=== PATIENT | male | born 1950 | race Caucasian/White ===

== ENCOUNTER 2017-12-23 09:52 | Outpatient (CLI) | payer MEDICARE ==
--- NOTE | 2017-12-23 11:49 | RAD ---
TWO VIEWS CHEST: INDICATIONS: Dyspnea. COMPARISON: None. FINDINGS: The lungs are hyperinflated and relative lucent, indicative of emphysema. There is interstitial opac ification bilaterally. No effusion or discrete pneumothorax. The cardiac silhouette is normal in si ze. There are mild osseous degenerative changes. IMPRESSION: 1. Pulmonary emphysema. 2. Superimposed interstitial opacities are present, which may be on the basis of chronic lung diseas e and/or a component of interspersed pulmonary parenchyma, accentuated by underlying emphysema. POS: [facility]
== END 2017-12-23 09:53 | disposition home or self-care (01) ==
LOC: RAD 09:52
PROVIDERS: ATTEND Internal Medicine
DX: R06.00 Dyspnea, unspecified (principal); J43.9 Emphysema, unspecified; R91.8 Other nonspecific abnormal finding of lung field
CPT/HCPCS: 71046

== ENCOUNTER 2018-06-29 10:28 | Outpatient (CLI) | payer MEDICARE ==
--- NOTE | 2018-06-29 11:58 | RAD ---
TWO VIEWS CHEST: COMPARISON: 12/23/17. HISTORY: Dyspnea. FINDINGS: Normal cardiac silhouette. The pulmonary vessels and hilum are normal. Costophrenic angles are toby r. Lungs are hyperinflated, without consolidation or mass. No pneumothorax or osseous abnormalities . IMPRESSION: Hyperinflation. No acute cardiopulmonary process. POS: [facility]
== END 2018-06-29 10:29 | disposition home or self-care (01) ==
LOC: RAD 10:28
PROVIDERS: ATTEND Internal Medicine
DX: R06.00 Dyspnea, unspecified (principal); R91.8 Other nonspecific abnormal finding of lung field
CPT/HCPCS: 71046

== ENCOUNTER 2018-07-14 09:01 | Outpatient (CLI) | payer MEDICARE ==
[2018-07-14 09:56] LABS: pH, Arterial 7.43 (7.35-7.45)
[2018-07-14 09:57] LABS: Actual Bicarbonate (HCO3a) 23.3 mEq/L (22-28); Base Excess (BEa) 0.6 mEq/L (-2.0 to +3.0); CO2 Tension 36.3 mmHg (35.0-45.0); Carboxyhemoglobin (COHb) 0.5 gm% (0.0-3.0); Hemoglobin (Hb) 14.1 g/dL (14.0-18.0)
[2018-07-14 09:58] LABS: ALV-art Gradient 30.355 (0-20); Analyzer IN Cardio OR; Calcium, Ionized 1.2 mmol/L (1.12-1.30); Potassium - ABG Lab 4.2 mmol/L (3.70-5.30); Puncture Site RR
== END 2018-07-14 09:02 | disposition home or self-care (01) ==
LOC: CP 09:01
PROVIDERS: ATTEND Internal Medicine
DX: J44.9 Chronic obstructive pulmonary disease, unspecified (principal); J96.11 Chronic respiratory failure with hypoxia; R06.00 Dyspnea, unspecified
CPT/HCPCS: 36415; 82805; 84443; 85025

== ENCOUNTER 2019-01-11 10:02 | Outpatient (CLI) | payer MEDICARE ==
--- NOTE | 2019-01-11 11:25 | RAD ---
CHEST TWO VIEWS: HISTORY: Dyspnea. COMPARISON: 06/29/2018 TECHNIQUE: PA and lateral views of the chest are obtained. FINDINGS: Two views of the chest demonstrate emphysematous changes seen in the lung parenchyma. 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 No evidence of effusions, pneumonia, or pneumothorax is seen. IMPRESSION: Changes of chronic obstructive pulmonary disease with air trapping. No evidence of effusions, pneumo dalton, or pneumothorax seen. POS: [facility]
== END 2019-01-11 10:03 | disposition home or self-care (01) ==
LOC: RAD 10:02
PROVIDERS: ATTEND Internal Medicine
DX: R06.00 Dyspnea, unspecified (principal); J98.4 Other disorders of lung
CPT/HCPCS: 71046

== ENCOUNTER 2019-04-13 10:48 | Outpatient (CLI) | payer MEDICARE ==
[2019-04-13] MEDS ORDERED: ISOVUE-370 76%-LOCM 1 ML ONE (11:25)
--- NOTE | 2019-04-13 13:32 | CT ---
CT CHEST WITH IV CONTRAST: Date: 04/13/19 HISTORY: Cough, shortness of breath, COPD. FINDINGS: No mediastinal, left hilar, or axillary mass or lymphadenopathy is seen. There is an 11 mm lymph node in the right hilar region. Vascular calcifications are present without evidence of aneurysmal dilata tion of the thoracic aorta. No pleural or pericardial effusions are seen. There are mild infiltrates in the right upper lobe adjacent to bullous change. In the absence of prev ious exams, it cannot be said with certainty if this is due to acute or chronic changes. No lung mass es are seen. Upper abdominal tomograms are unremarkable. No acute osseous abnormalities are seen. IMPRESSION: Emphysema with mild infiltrates in the left upper lobe. A follow-up exam would be helpful in 3 months . POS: [facility]
== END 2019-04-13 10:49 | disposition home or self-care (01) ==
LOC: BICCT 10:48
PROVIDERS: ATTEND Internal Medicine
DX: R05 Cough (principal); J44.9 Chronic obstructive pulmonary disease, unspecified; J96.11 Chronic respiratory failure with hypoxia; R91.8 Other nonspecific abnormal finding of lung field; J43.9 Emphysema, unspecified
CPT/HCPCS: 36415; 71260; 82565; 82785; 85025; Q9966

== ENCOUNTER 2019-10-03 08:54 | Outpatient (CLI) | payer MEDICARE ==
[2019-10-03 09:24] LABS: Estimated GFR-MDRD - POC Greater than 90
--- NOTE | 2019-10-03 10:03 | CT ---
CT CHEST WITH IV CONTRAST: DATE: 10/03/2019. COMPARISON: 04/13/2019. HISTORY: COPD, cough, shortness of breath, pulmonary infiltrate. TECHNIQUE: Axial CT imaging at 3 mm intervals from the thoracic inlet through the upper abdomen with IV contrast . Coronal reformatted imaging obtained. FINDINGS: No pneumothorax is evident on either side. There are emphysematous changes noted bilaterally with an upper lobe predominance. There is diffuse mild bronchial wall thickening seen throughout both lungs bilaterally, slightly wors ened diffusely when compared to the prior examination. Left upper lobe: There are subtle areas of linear reticulonodular density noted within the in inferio r anterior and lateral aspects of the left lower lobe/lingula, significantly improved when compared to the 04/13/2019 examination. No focal consolidation or dominant pulmonary parenchymal mass lesion or nodule is noted within the left upper lobe. There are mild areas of increased linear density within the posterior and medial aspect of the left l ower lobe inferiorly with small pleural-based nodules within the inferomedial aspect of the left lower lobe, measuring up to 8-9 mm on axial image 87. Mild increased linear interstitial density is noted within the posterior medial aspect of the right l ower lobe inferiorly, new when compared to the prior examination. Within the right middle lobe there are scattered areas of nonspecific reticulonodular density, most p rominent within the inferior and lateral aspect of the right middle lobe, not seen on the prior examination. Similarly, there are scattered mild areas of nonspecific reticulonodular density within the posterior and lateral aspects of the right upper lobe, also new when compared to the prior exam. There are a few scattered areas of bronchial opacification within the inferomedial aspect of both low er lobes. There is scattered atherosclerotic calcification involving the coronary arteries, the aortic arch, an d the descending thoracic aorta. There is scattered atherosclerotic calcification of the upper abdominal aorta. The imaged upper abdomen demonstrates no acute findings. No pleural, pericardial, or mediastinal fluid is evident. No axillary lymphadenopathy noted. Stable nonspecific enlarged right hilar lymph node noted measuring approximately 1.2 cm in short axis dimension. Review of the osseous structures demonstrates no worrisome lytic or blastic bone lesion. IMPRESSION: The prior examination demonstrated reticulonodular densities within the lingula which have improved. However, there are scattered new areas of bilateral reticulonodular density as well as diffuse areas of bronchial thickening and areas of bronchial plugging/opacification within the lung bases. Fi ndings suggest atypical infectious pneumonitis. This may be related to [facility]. There is a nonspecific mildly enlarged right hilar lymph node, which is not significantly changed when compared to the prior exam. Continued follow-up suggested. Transcribed Date/Time: 10/03/2019 10:27 AM
== END 2019-10-03 08:55 | disposition home or self-care (01) ==
LOC: BICCT 08:54
PROVIDERS: ATTEND Internal Medicine
DX: R91.8 Other nonspecific abnormal finding of lung field (principal); R59.0 Localized enlarged lymph nodes
CPT/HCPCS: 71260; 82565

== ENCOUNTER 2021-10-03 20:46 | Inpatient (IN) | payer MEDICARE ==
[2021-10-03] MEDS ORDERED: methylPREDNISolone Sod Succ/PF 125 MG/2 ML VIAL ONE (20:51)
[2021-10-03] MEDS ORDERED: Lorazepam 2 MG/ML VIAL ONE ×2 (21:10→23:26)
[2021-10-03] MEDS ORDERED: Azithromycin 1,000 MG in Sodium Chloride 0.9% 500 ML IVPB SCH (21:30)
[2021-10-03 21:33] LABS: Bilirubin Negative (Negative); Blood, Urine Negative (Negative); Clarity Clear (Clear); Glucose, Urine (Dipstick) Normal (Negative); Ketone, Urine 60 mg/dL (Negative); Leukocyte Negative Leu/uL (Negative); Nitrite Negative (Negative); Protein, Urine (Dipstick) 20 mg/dL (Neg-Trace); Specific Gravity, Urine 1.023 (1.002-1.036); Urobilinogen Normal mg/dL (Less than 2)
[2021-10-03 22:06] LABS: SARS-CoV-2 NAA Rapid Test Not Detected (NotDetected)
[2021-10-03 22:28] LABS: Analyzer IN Cardio ER; Base Excess (BEa) -10.6 mEq/L (-2.0 to +3.0); Calcium, Ionized (arterial) 1.17 mmol/L (1.12-1.30); Carboxyhemoglobin (COHb) 0.3 gm% (0.0-3.0); Hemoglobin (Hb) 13.2 g/dL (14.0-18.0); O2 Tension (PaO2), arterial 86.2 mmHg (> 70.0); Potassium - ABG Lab 4.79 mmol/L (3.70-5.30)
[2021-10-03] MEDS ORDERED: Acetaminophen 325 MG TAB PO PRN (22:29)
[2021-10-03] MEDS ORDERED: Ondansetron PF 4 MG/2 ML Vial IVP PRN (22:29)
[2021-10-03] MEDS ORDERED: Cefepime 1 GM VIAL ONE (22:54)
[2021-10-03 23:11] LABS: Anion Gap 22 mmol/L (10-20); BUN (Urea Nitrogen) 31 mg/dL (8.4-25.7); Calc. Creatinine Clearance 0 mL/min (70-130); Calcium 8.6 mg/dL (7.8-10.44); Carbon Dioxide 15 mmol/L (23-31); Chloride 108 mmol/L (98-107); Glucose 117 mg/dL (83-110); Sodium 140 mmol/L (136-145)
[2021-10-03] MEDS ORDERED: Lorazepam 2 MG/ML VIAL SLOW IVP SCH (23:30)
[2021-10-03] MEDS ORDERED: Sodium Bicarb 50 MEQ/50 ML Abboject 8.4% SYRINGE ONE (23:44)
[2021-10-03] MEDS ORDERED: Sodium Bicarb 50 MEQ/50 ML Abboject 8.4% SYRINGE IVP SCH (23:45)
[2021-10-03] MEDS: methylPREDNISolone Sod Succ/PF 125 MG/2 ML VIAL IVP SCH (23:49)
[2021-10-03] MEDS ORDERED: Albuterol Sulfate 1.25 MG/3 ML NEB EZPAP PRN (23:51)
[2021-10-03] MEDS: Cefepime 1 GM in Sodium Chloride 0.9% 100 ML IVPB SCH (23:55)
[2021-10-03 23:58] LABS: Puncture Site RRA; pH, Arterial 7.24 (7.35-7.45)
[2021-10-04 00:04] LABS: Lactic Acid 2.6 mmol/L (0.5-2.2)
[2021-10-04 00:08] LABS: Magnesium 2.5 mg/dL (1.6-2.6)
[2021-10-04] MEDS: Sodium Bicarbonate 150 MEQ in Dextrose 5% in Water 1,000 ML IV SCH ×3 (00:22→20:20)
[2021-10-04 02:21] LABS: #Lymphocytes 0.4 thou/uL (1.20-3.40); #Monocytes 0.1 thou/uL (0.11-0.59); #Neutrophils 8.2 thou/uL (1.40-6.50); %Basophils 0.2 % (0.0-1.0); %Eosinophils 0.1 % (0.0-10.0); %Lymphocytes 4.1 % (21.0-51.0); %Monocytes 0.9 % (0.0-10.0); %Neutrophils 94.7 % (42.0-75.0); Hemoglobin 12.6 g/dL (14.0-18.0); Mean Corpuscular HGB CONC 32.7 g/dL (32.0-36.0); Mean Corpuscular Hemoglobin 31.3 pg (27.0-31.0); Mean Corpuscular Volume 95.6 fL (78.0-98.0); Mean Platelet Volume 6.4 fL (7.4-10.4); Platelet Count 272 thou/uL (130-400); RBC Distribution Width 12.6 % (11.5-14.5); Red Blood Cell (RBC) Count 4.01 mill/uL (4.70-6.10); White Blood Cell (WBC) Count 8.7 thou/uL (4.8-10.8)
[2021-10-04 02:22] LABS: Troponin I 0.043 ng/mL (< 0.028)
[2021-10-04 02:30] LABS: Anion Gap 22 mmol/L (10-20); BUN (Urea Nitrogen) 33 mg/dL (8.4-25.7); Calc. Creatinine Clearance 57 mL/min (70-130); Calcium 8.7 mg/dL (7.8-10.44); Carbon Dioxide 20 mmol/L (23-31); Chloride 107 mmol/L (98-107); Glucose 158 mg/dL (83-110); Magnesium 2.5 mg/dL (1.6-2.6); Potassium 4.8 mmol/L (3.5-5.1); Sodium 144 mmol/L (136-145)
[2021-10-04 02:31] LABS: ALT (SGPT) 26 U/L (8-55); AST (SGOT) 64 U/L (5-34); Albumin 3.5 g/dL (3.4-4.8); Alkaline Phosphatase 56 U/L (40-110); Bilirubin, Direct 0.2 mg/dL (0.1-0.3); Bilirubin, Total 0.4 mg/dL (0.2-1.2)
[2021-10-04 05:55] LABS: Hemoglobin A1c 5.3 % (4.0-6.0)
[2021-10-04 05:57] LABS: Lactic Acid 1.7 mmol/L (0.5-2.2)
[2021-10-04] MEDS: methylPREDNISolone Sod Succ/PF 125 MG/2 ML VIAL IVP SCH ×3 (06:33→18:57)
[2021-10-04] MEDS ORDERED: Dextrose 5% in Water 1,000 ML IV PRN (09:51)
[2021-10-04] MEDS ORDERED: Dextrose 50% Abboject 50 ML SYRINGE SLOW IVP PRN (09:51)
[2021-10-04] MEDS: Enoxaparin Sodium 40 MG/0.4 ML SYRINGE SC SCH (10:38)
[2021-10-04] MEDS: Famotidine 20 MG TAB PO SCH ×2 (10:38→20:10)
[2021-10-04] MEDS ORDERED: Rocuronium Bromide 10 MG/ML (10ML VIAL) ONE (11:34)
[2021-10-04] MEDS: Cefepime 1 GM in Sodium Chloride 0.9% 100 ML IVPB SCH ×2 (12:49→22:43)
[2021-10-04] MEDS ORDERED: ALPRAZolam 0.25 MG TAB PO PRN (16:10)
[2021-10-04] MEDS: Budesonide 0.5 MG/2 ML NEB NEB SCH (18:12)
[2021-10-04] MEDS ORDERED: Midazolam HCl 2 mg/2 ml Vial ONE (18:15)
[2021-10-04] MEDS: Arformoterol 15 MCG/2 ML NEB NEB SCH (18:31)
[2021-10-04] MEDS ORDERED: Fentanyl CADD 100 ML ONE (19:55)
[2021-10-04] MEDS ORDERED: Fentanyl BOLUS 250 ML IVPB PRN (20:00)
[2021-10-04] MEDS ORDERED: Propofol BOLUS 1,000 MG/100 ML VIAL IV PRN (20:00)
[2021-10-04] MEDS ORDERED: DISCONTINUE PREVIOUS NARCOTIC PAIN MEDICATIONS AND BENZODIAZEPINES FS SCH (20:00)
[2021-10-04] MEDS: Fentanyl CADD 100 ML IV SCH (20:04)
[2021-10-04] MEDS: Lorazepam 2 MG/ML VIAL SLOW IVP PRN (20:05)
[2021-10-04] MEDS: Finasteride 5 MG TAB PO SCH (20:10)
[2021-10-04] MEDS: Gabapentin 300 MG CAP PO SCH (20:10)
[2021-10-04 23:50] LABS: Actual Bicarbonate (HCO3a) 25.3 mEq/L (22-28); Base Excess (BEa) 4.6 mEq/L (-2.0 to +3.0); Calcium, Ionized (arterial) 1.08 mmol/L (1.12-1.30); Carboxyhemoglobin (COHb) 0.3 gm% (0.0-3.0); Hemoglobin (Hb) 11.2 g/dL (14.0-18.0); O2 Tension (PaO2), arterial 95.8 mmHg (> 70.0); Potassium - ABG Lab 3.49 mmol/L (3.70-5.30)
[2021-10-04 23:51] LABS: CO2 Tension 25.8 mmHg (35.0-45.0); Puncture Site RR; pH, Arterial 7.61 (7.35-7.45)
[2021-10-05] MEDS: methylPREDNISolone Sod Succ/PF 125 MG/2 ML VIAL IVP SCH ×4 (00:17→18:06)
[2021-10-05] MEDS: Propofol 1,000 MG/100 ML VIAL IV PRN ×2 (00:20→05:19)
[2021-10-05 03:54] LABS: #Lymphocytes 0.2 thou/uL (1.20-3.40); #Monocytes 0.5 thou/uL (0.11-0.59); #Neutrophils 12.4 thou/uL (1.40-6.50); %Eosinophils 0.2 % (0.0-10.0); %Lymphocytes 1.7 % (21.0-51.0); %Monocytes 3.9 % (0.0-10.0); %Neutrophils 94.3 % (42.0-75.0); Mean Corpuscular HGB CONC 32.9 g/dL (32.0-36.0); Mean Corpuscular Hemoglobin 31.2 pg (27.0-31.0); Mean Corpuscular Volume 94.7 fL (78.0-98.0); Mean Platelet Volume 6.5 fL (7.4-10.4); Platelet Count 257 thou/uL (130-400); RBC Distribution Width 12.6 % (11.5-14.5); Red Blood Cell (RBC) Count 3.52 mill/uL (4.70-6.10); White Blood Cell (WBC) Count 13.2 thou/uL (4.8-10.8)
[2021-10-05 04:22] LABS: Anion Gap 11 mmol/L (10-20); BUN (Urea Nitrogen) 24 mg/dL (8.4-25.7); CK (CPK) 572 U/L (30-200); Calc. Creatinine Clearance 80 mL/min (70-130); Calcium 8.3 mg/dL (7.8-10.44); Carbon Dioxide 33 mmol/L (23-31); Chloride 101 mmol/L (98-107); Glucose 210 mg/dL (83-110); Magnesium 2.4 mg/dL (1.6-2.6); Potassium 3.2 mmol/L (3.5-5.1); Sodium 142 mmol/L (136-145)
[2021-10-05] MEDS: Budesonide 0.5 MG/2 ML NEB NEB SCH ×2 (07:26→19:07)
[2021-10-05] MEDS: Arformoterol 15 MCG/2 ML NEB NEB SCH ×2 (07:26→19:11)
[2021-10-05 08:21] LABS: Actual Bicarbonate (HCO3a) 31.5 mEq/L (22-28); Base Excess (BEa) 8.9 mEq/L (-2.0 to +3.0); CO2 Tension 36.3 mmHg (35.0-45.0); Calcium, Ionized (arterial) 1.04 mmol/L (1.12-1.30); Carboxyhemoglobin (COHb) 0.2 gm% (0.0-3.0); O2 Tension (PaO2), arterial 63.5 mmHg (> 70.0); Potassium - ABG Lab 2.95 mmol/L (3.70-5.30)
[2021-10-05 08:30] LABS: pH, Arterial 7.56 (7.35-7.45)
[2021-10-05 08:31] LABS: ALV-art Gradient 105.025 mmHg (0-20); Puncture Site RRA
[2021-10-05] MEDS ORDERED: Aspirin 81 mg Enteric Coated Tablet PO SCH (09:00)
[2021-10-05] MEDS: Tamsulosin HCl 0.4 MG CAP PO SCH (09:30)
[2021-10-05] MEDS: Enoxaparin Sodium 40 MG/0.4 ML SYRINGE SC SCH (09:30)
[2021-10-05] MEDS: Montelukast Sodium 10 mg Tablet PO SCH (10:11)
[2021-10-05] MEDS: Aspirin Chewable 81 MG TAB PER TUBE SCH (10:11)
[2021-10-05] MEDS: Famotidine 20 MG TAB PO SCH ×2 (10:12→20:09)
[2021-10-05] MEDS: Lorazepam 2 MG/ML VIAL SLOW IVP PRN ×3 (10:22→20:08)
[2021-10-05] MEDS: HumaLOG 300 UNITS/3 ML VIAL SC PRN ×2 (10:37→20:09)
[2021-10-05] MEDS ORDERED: Potassium Chloride 20 MEQ TAB PO SCH (11:15)
[2021-10-05] MEDS: Sodium Chloride 0.45% 1,000 ML IV SCH (12:32)
[2021-10-05] MEDS ORDERED: Potassium Bicarbonate/Cit Ac 20 MEQ TAB PO SCH (12:45)
[2021-10-05] MEDS ORDERED: Fentanyl CADD 100 ML ONE (15:17)
[2021-10-05] MEDS: Fentanyl CADD 100 ML IV SCH (15:20)
[2021-10-05] MEDS: Sodium Bicarbonate 150 MEQ in Dextrose 5% in Water 1,000 ML IV SCH (18:26)
[2021-10-05] MEDS: Gabapentin 300 MG CAP PO SCH (20:09)
[2021-10-05] MEDS: Finasteride 5 MG TAB PO SCH (20:10)
[2021-10-05] MEDS: Cefepime 1 GM in Sodium Chloride 0.9% 100 ML IVPB SCH (21:49)
[2021-10-06] MEDS: methylPREDNISolone Sod Succ/PF 125 MG/2 ML VIAL IVP SCH ×4 (00:01→17:55)
[2021-10-06] MEDS: HumaLOG 300 UNITS/3 ML VIAL SC PRN ×5 (00:03→22:25)
[2021-10-06] MEDS ORDERED: Morphine 4 MG/ML VIAL ONE ×2 (02:54→19:03)
[2021-10-06] MEDS: Lorazepam 2 MG/ML VIAL SLOW IVP PRN ×2 (03:01→19:07)
[2021-10-06] MEDS: Morphine 2 MG/ML VIAL SLOW IVP PRN ×2 (03:02→19:07)
[2021-10-06] MEDS: Sodium Chloride 0.45% 1,000 ML IV SCH ×2 (04:07→22:09)
[2021-10-06 04:24] LABS: #Lymphocytes 0.1 thou/uL (1.20-3.40); #Monocytes 0.4 thou/uL (0.11-0.59); #Neutrophils 13.5 thou/uL (1.40-6.50); %Basophils 0.2 % (0.0-1.0); %Lymphocytes 0.9 % (21.0-51.0); %Monocytes 2.6 % (0.0-10.0); %Neutrophils 96.2 % (42.0-75.0); Mean Corpuscular HGB CONC 31.7 g/dL (32.0-36.0); Mean Corpuscular Hemoglobin 30.1 pg (27.0-31.0); Mean Corpuscular Volume 95.1 fL (78.0-98.0); Platelet Count 274 thou/uL (130-400); RBC Distribution Width 12.6 % (11.5-14.5); Red Blood Cell (RBC) Count 3.97 mill/uL (4.70-6.10); White Blood Cell (WBC) Count 14.1 thou/uL (4.8-10.8)
[2021-10-06 04:36] LABS: Anion Gap 14 mmol/L (10-20); BUN (Urea Nitrogen) 20 mg/dL (8.4-25.7); Calc. Creatinine Clearance 89 mL/min (70-130); Calcium 8.5 mg/dL (7.8-10.44); Carbon Dioxide 31 mmol/L (23-31); Chloride 100 mmol/L (98-107); Glucose 154 mg/dL (83-110); Magnesium 2.4 mg/dL (1.6-2.6); Potassium 3.3 mmol/L (3.5-5.1); Sodium 142 mmol/L (136-145)
[2021-10-06] MEDS: Budesonide 0.5 MG/2 ML NEB NEB SCH ×2 (07:51→18:00)
[2021-10-06] MEDS: Arformoterol 15 MCG/2 ML NEB NEB SCH ×2 (07:51→17:59)
[2021-10-06] MEDS ORDERED: Potassium Chloride 20 MEQ TAB PO SCH (08:30)
[2021-10-06 08:35] LABS: Actual Bicarbonate (HCO3a) 31.4 mEq/L (22-28); Base Excess (BEa) 6.7 mEq/L (-2.0 to +3.0); CO2 Tension 45.1 mmHg (35.0-45.0); Calcium, Ionized (arterial) 1.15 mmol/L (1.12-1.30); Carboxyhemoglobin (COHb) 0.3 gm% (0.0-3.0); Hemoglobin (Hb) 12.3 g/dL (14.0-18.0); O2 Tension (PaO2), arterial 81.5 mmHg (> 70.0); Potassium - ABG Lab 3.33 mmol/L (3.70-5.30); pH, Arterial 7.46 (7.35-7.45)
[2021-10-06 08:47] LABS: ALV-art Gradient 76.025 mmHg (0-20); Puncture Site RRA
[2021-10-06] MEDS: Enoxaparin Sodium 40 MG/0.4 ML SYRINGE SC SCH (09:19)
[2021-10-06] MEDS: Aspirin Chewable 81 MG TAB PER TUBE SCH (09:19)
[2021-10-06] MEDS: Tamsulosin HCl 0.4 MG CAP PO SCH (09:19)
[2021-10-06] MEDS: Montelukast Sodium 10 mg Tablet PO SCH (09:19)
[2021-10-06] MEDS: Famotidine 20 MG TAB PO SCH ×2 (09:19→21:45)
[2021-10-06] MEDS ORDERED: Fentanyl CADD 100 ML ONE (10:30)
[2021-10-06] MEDS: Fentanyl CADD 100 ML IV SCH (10:34)
[2021-10-06] MEDS: Vancomycin 1 GM in Premix Bag 1 BAG IVPB SCH (12:40)
[2021-10-06] MEDS: Cefepime 1 GM in Sodium Chloride 0.9% 100 ML IVPB SCH (21:45)
[2021-10-06] MEDS: Finasteride 5 MG TAB PO SCH (21:45)
[2021-10-06] MEDS: Gabapentin 300 MG CAP PO SCH (21:45)
[2021-10-07] MEDS: Lorazepam 2 MG/ML VIAL SLOW IVP PRN ×4 (00:01→19:15)
[2021-10-07] MEDS: methylPREDNISolone Sod Succ/PF 125 MG/2 ML VIAL IVP SCH ×5 (01:27→23:54)
[2021-10-07] MEDS: Vancomycin 1 GM in Premix Bag 1 BAG IVPB SCH ×3 (01:27→23:53)
[2021-10-07 04:02] LABS: #Lymphocytes 0.2 thou/uL (1.20-3.40); #Monocytes 0.5 thou/uL (0.11-0.59); #Neutrophils 11.4 thou/uL (1.40-6.50); %Eosinophils 0.1 % (0.0-10.0); %Lymphocytes 1.4 % (21.0-51.0); %Monocytes 3.9 % (0.0-10.0); %Neutrophils 94.6 % (42.0-75.0); Hemoglobin 11.8 g/dL (14.0-18.0); Mean Corpuscular HGB CONC 32.3 g/dL (32.0-36.0); Mean Corpuscular Hemoglobin 30.6 pg (27.0-31.0); Mean Corpuscular Volume 94.6 fL (78.0-98.0); Mean Platelet Volume 7.3 fL (7.4-10.4); Platelet Count 252 thou/uL (130-400); RBC Distribution Width 12.6 % (11.5-14.5); Red Blood Cell (RBC) Count 3.86 mill/uL (4.70-6.10)
[2021-10-07 04:25] LABS: Anion Gap 7 mmol/L (10-20); BUN (Urea Nitrogen) 34 mg/dL (8.4-25.7); Calc. Creatinine Clearance 81 mL/min (70-130); Calcium 8.6 mg/dL (7.8-10.44); Carbon Dioxide 33 mmol/L (23-31); Chloride 101 mmol/L (98-107); Glucose 156 mg/dL (83-110); Sodium 137 mmol/L (136-145)
[2021-10-07] MEDS: HumaLOG 300 UNITS/3 ML VIAL SC PRN ×3 (06:32→22:24)
[2021-10-07] MEDS: Arformoterol 15 MCG/2 ML NEB NEB SCH ×2 (07:40→18:10)
[2021-10-07] MEDS: Budesonide 0.5 MG/2 ML NEB NEB SCH ×2 (07:40→18:10)
[2021-10-07] MEDS: Montelukast Sodium 10 mg Tablet PO SCH (11:59)
[2021-10-07] MEDS: Famotidine 20 MG TAB PO SCH ×2 (11:59→21:59)
[2021-10-07] MEDS: Tamsulosin HCl 0.4 MG CAP PO SCH (11:59)
[2021-10-07] MEDS: Aspirin Chewable 81 MG TAB PER TUBE SCH (11:59)
[2021-10-07] MEDS: Enoxaparin Sodium 40 MG/0.4 ML SYRINGE SC SCH (12:01)
[2021-10-07] MEDS: Cefepime 1 GM in Sodium Chloride 0.9% 100 ML IVPB SCH ×2 (13:42→23:53)
[2021-10-07] MEDS: Fentanyl CADD 100 ML IV SCH (14:15)
[2021-10-07] MEDS ORDERED: Magnesium Sulfate 3 GM in Sodium Chloride 0.9% 100 ML IVPB SCH (14:15)
[2021-10-07] MEDS: Sodium Chloride 0.45% 1,000 ML IV SCH ×2 (15:00→22:32)
[2021-10-07] MEDS ORDERED: Morphine 4 MG/ML VIAL ONE (19:12)
[2021-10-07] MEDS: Morphine 2 MG/ML VIAL SLOW IVP PRN (19:15)
[2021-10-07] MEDS: Finasteride 5 MG TAB PO SCH (21:59)
[2021-10-07] MEDS: Gabapentin 300 MG CAP PO SCH (21:59)
[2021-10-07 23:28] LABS: Vancomycin, Trough 14.3 ug/mL
[2021-10-08] MEDS ORDERED: Morphine 4 MG/ML VIAL ONE ×2 (00:34→01:49)
[2021-10-08] MEDS: Lorazepam 2 MG/ML VIAL SLOW IVP PRN ×4 (00:49→11:08)
[2021-10-08] MEDS: Morphine 2 MG/ML VIAL SLOW IVP PRN ×2 (00:49→01:53)
[2021-10-08] MEDS: Propofol 1,000 MG/100 ML VIAL IV PRN ×2 (02:33→05:03)
[2021-10-08 03:03] LABS: Anion Gap 12 mmol/L (10-20); BUN (Urea Nitrogen) 44 mg/dL (8.4-25.7); Calc. Creatinine Clearance 80 mL/min (70-130); Calcium 8.4 mg/dL (7.8-10.44); Carbon Dioxide 28 mmol/L (23-31); Chloride 100 mmol/L (98-107); Glucose 163 mg/dL (83-110); Potassium 4.7 mmol/L (3.5-5.1); Sodium 135 mmol/L (136-145)
[2021-10-08 03:14] LABS: Band 18 % (5-11); Hemoglobin 12.9 g/dL (14.0-18.0); Lymphocytes 2 % (21-51); MDiff Complete? YES; Mean Corpuscular HGB CONC 32.6 g/dL (32.0-36.0); Mean Corpuscular Volume 94.9 fL (78.0-98.0); Mean Platelet Volume 7.1 fL (7.4-10.4); Monocytes 3 % (0-10); Neutrophil 77 % (42-75); Platelet Count 295 thou/uL (130-400); RBC Distribution Width 12.8 % (11.5-14.5); Red Blood Cell (RBC) Count 4.16 mill/uL (4.70-6.10); White Blood Cell (WBC) Count 17.2 thou/uL (4.8-10.8)
[2021-10-08] MEDS: methylPREDNISolone Sod Succ/PF 125 MG/2 ML VIAL IVP SCH (05:04)
[2021-10-08] MEDS: HumaLOG 300 UNITS/3 ML VIAL SC PRN ×2 (05:16→21:08)
[2021-10-08] MEDS: Budesonide 0.5 MG/2 ML NEB NEB SCH ×2 (08:12→19:15)
[2021-10-08] MEDS: Arformoterol 15 MCG/2 ML NEB NEB SCH ×2 (08:12→19:15)
[2021-10-08] MEDS: Aspirin Chewable 81 MG TAB PER TUBE SCH (08:13)
[2021-10-08] MEDS: Famotidine 20 MG TAB PO SCH ×2 (08:13→21:03)
[2021-10-08] MEDS: Tamsulosin HCl 0.4 MG CAP PO SCH (08:13)
[2021-10-08] MEDS: Montelukast Sodium 10 mg Tablet PO SCH (08:13)
[2021-10-08] MEDS: Enoxaparin Sodium 40 MG/0.4 ML SYRINGE SC SCH (08:13)
[2021-10-08] MEDS: methylPREDNISolone Sod Succ 40 MG VIAL IVP SCH ×3 (11:10→23:54)
[2021-10-08] MEDS: Vancomycin 1 GM in Premix Bag 1 BAG IVPB SCH (11:12)
[2021-10-08] MEDS ORDERED: Morphine 4 MG/ML VIAL SLOW IVP PRN (12:15)
[2021-10-08] MEDS: Fentanyl CADD 100 ML IV SCH (12:48)
[2021-10-08] MEDS: Cefepime 1 GM in Sodium Chloride 0.9% 100 ML IVPB SCH ×2 (12:49→23:54)
[2021-10-08 13:58] VITALS: BMI 26.0
[2021-10-08] MEDS: Sodium Chloride 0.45% 1,000 ML IV SCH ×2 (14:29→23:55)
[2021-10-08] MEDS: Azithromycin 500 MG in Sodium Chloride 0.9% 250 ML 250 ML IVPB SCH (17:29)
[2021-10-08] MEDS: Midazolam In 0.9 % NaCl/PF 100 ML IVPB SCH (21:00)
[2021-10-08] MEDS: Finasteride 5 MG TAB PO SCH (21:02)
[2021-10-08] MEDS: Gabapentin 300 MG CAP PO SCH (21:03)
[2021-10-08] MEDS: Vecuronium 10 MG VIAL IVP PRN (21:44)
[2021-10-09] MEDS: Vancomycin 1 GM in Premix Bag 1 BAG IVPB SCH ×2 (00:31→12:45)
[2021-10-09] MEDS: Vecuronium 10 MG VIAL IVP PRN ×2 (01:25→07:19)
[2021-10-09] MEDS: Lorazepam 2 MG/ML VIAL SLOW IVP PRN ×2 (01:28→12:45)
[2021-10-09] MEDS: Fentanyl CADD 100 ML IV SCH ×2 (04:46→23:20)
[2021-10-09] MEDS: methylPREDNISolone Sod Succ 40 MG VIAL IVP SCH ×4 (06:08→23:36)
[2021-10-09] MEDS: Budesonide 0.5 MG/2 ML NEB NEB SCH ×2 (07:14→19:01)
[2021-10-09] MEDS: Arformoterol 15 MCG/2 ML NEB NEB SCH ×2 (07:15→19:00)
[2021-10-09] MEDS: Tamsulosin HCl 0.4 MG CAP PO SCH (08:52)
[2021-10-09] MEDS: Aspirin Chewable 81 MG TAB PER TUBE SCH (08:52)
[2021-10-09] MEDS: Montelukast Sodium 10 mg Tablet PO SCH (08:52)
[2021-10-09] MEDS: Famotidine 20 MG TAB PO SCH ×2 (08:53→22:03)
[2021-10-09] MEDS: Enoxaparin Sodium 40 MG/0.4 ML SYRINGE SC SCH (08:53)
[2021-10-09 10:50] LABS: Hemoglobin 13.6 g/dL (14.0-18.0); Mean Corpuscular HGB CONC 32.9 g/dL (32.0-36.0); Mean Corpuscular Hemoglobin 31.4 pg (27.0-31.0); Mean Corpuscular Volume 95.3 fL (78.0-98.0); Mean Platelet Volume 6.9 fL (7.4-10.4); Platelet Count 294 thou/uL (130-400); RBC Distribution Width 12.8 % (11.5-14.5); Red Blood Cell (RBC) Count 4.34 mill/uL (4.70-6.10); White Blood Cell (WBC) Count 24.8 thou/uL (4.8-10.8)
[2021-10-09 11:07] LABS: ALT (SGPT) 186 U/L (8-55); AST (SGOT) 66 U/L (5-34); Albumin 3.1 g/dL (3.4-4.8); Alkaline Phosphatase 53 U/L (40-110); Anion Gap 14 mmol/L (10-20); BUN (Urea Nitrogen) 42 mg/dL (8.4-25.7); Band 8 % (5-11); Bilirubin, Total 0.3 mg/dL (0.2-1.2); Calc. Creatinine Clearance 92 mL/min (70-130); Calcium 8.9 mg/dL (7.8-10.44); Carbon Dioxide 26 mmol/L (23-31); Chloride 99 mmol/L (98-107); Globulin 2.5 g/dL (2.4-3.5); Glucose 147 mg/dL (83-110); Lymphocytes 3 % (21-51); MDiff Complete? YES; Magnesium 2.3 mg/dL (1.6-2.6); Metamyelocyte 1 % (0-0); Monocytes 3 % (0-10); Neutrophil 85 % (42-75); Phosphorus 3.6 mg/dL (2.3-4.7); Platelet Morphology Comment Appears Adequate; Polychromasia SLIGHT = 2-3 cells (100X) (0-2/hpf); Potassium 5.5 mmol/L (3.5-5.1); Protein, Total 5.6 g/dL (5.8-8.1); Sodium 133 mmol/L (136-145)
[2021-10-09] MEDS: Cefepime 1 GM in Sodium Chloride 0.9% 100 ML IVPB SCH ×2 (11:11→23:36)
[2021-10-09 11:26] LABS: Vancomycin, Trough 21.8 ug/mL
[2021-10-09 11:31] LABS: Actual Bicarbonate (HCO3a) 28.7 mEq/L (22-28); Base Excess (BEa) 3.6 mEq/L (-2.0 to +3.0); CO2 Tension 45.4 mmHg (35.0-45.0); Carboxyhemoglobin (COHb) 0.2 gm% (0.0-3.0); Hemoglobin (Hb) 12.5 g/dL (14.0-18.0); O2 Tension (PaO2), arterial 73.9 mmHg (> 70.0); Potassium - ABG Lab 5.25 mmol/L (3.70-5.30); pH, Arterial 7.42 (7.35-7.45)
[2021-10-09 11:32] LABS: Puncture Site RBA
[2021-10-09] MEDS: Midazolam In 0.9 % NaCl/PF 100 ML IVPB SCH (13:55)
[2021-10-09 15:53] LABS: Bacteria/HPF None Seen HPF (None Seen); Bilirubin Negative (Negative); Blood, Urine 3+ (Negative); Clarity Turbid (Clear); Glucose, Urine (Dipstick) Normal (Negative); Ketone, Urine Negative (Negative); Leukocyte 25 Leu/uL (Negative); Nitrite Negative (Negative); Protein, Urine (Dipstick) 20 mg/dL (Neg-Trace); RBC/HPF Greater than 50 HPF (0-3); Specific Gravity, Urine 1.027 (1.002-1.036); Squamous Epithelial None Seen HPF (0-3); Urobilinogen Normal mg/dL (Less than 2); WBC/HPF 0-3 HPF (0-3)
[2021-10-09 15:54] LABS: Urine Culture Reflex Yes Yes
[2021-10-09] MEDS: Azithromycin 500 MG in Sodium Chloride 0.9% 250 ML 250 ML IVPB SCH (17:50)
[2021-10-09] MEDS: Finasteride 5 MG TAB PO SCH (22:03)
[2021-10-09] MEDS: Gabapentin 300 MG CAP PO SCH (22:03)
[2021-10-10] MEDS: Vancomycin 1 GM in Premix Bag 1 BAG IVPB SCH ×2 (01:05→10:44)
[2021-10-10] MEDS: Midazolam In 0.9 % NaCl/PF 100 ML IVPB SCH (02:26)
[2021-10-10 04:13] LABS: ALT (SGPT) 128 U/L (8-55); AST (SGOT) 30 U/L (5-34); Albumin 2.7 g/dL (3.4-4.8); Alkaline Phosphatase 46 U/L (40-110); Anion Gap 9 mmol/L (10-20); BUN (Urea Nitrogen) 35 mg/dL (8.4-25.7); Bilirubin, Total 0.2 mg/dL (0.2-1.2); Calc. Creatinine Clearance 97 mL/min (70-130); Calcium 8.6 mg/dL (7.8-10.44); Carbon Dioxide 30 mmol/L (23-31); Chloride 100 mmol/L (98-107); Globulin 2.2 g/dL (2.4-3.5); Glucose 162 mg/dL (83-110); Magnesium 2.3 mg/dL (1.6-2.6); Phosphorus 3.4 mg/dL (2.3-4.7); Potassium 5.3 mmol/L (3.5-5.1); Protein, Total 4.9 g/dL (5.8-8.1); Sodium 134 mmol/L (136-145)
[2021-10-10] MEDS: methylPREDNISolone Sod Succ 40 MG VIAL IVP SCH ×4 (05:04→22:34)
[2021-10-10] MEDS: Budesonide 0.5 MG/2 ML NEB NEB SCH ×2 (07:29→19:13)
[2021-10-10] MEDS: Arformoterol 15 MCG/2 ML NEB NEB SCH ×2 (07:30→19:13)
[2021-10-10] MEDS: Enoxaparin Sodium 40 MG/0.4 ML SYRINGE SC SCH (08:28)
[2021-10-10] MEDS: Famotidine 20 MG TAB PO SCH ×2 (08:28→20:30)
[2021-10-10] MEDS: Aspirin Chewable 81 MG TAB PER TUBE SCH (08:28)
[2021-10-10] MEDS: Montelukast Sodium 10 mg Tablet PO SCH (08:29)
[2021-10-10] MEDS: Tamsulosin HCl 0.4 MG CAP PO SCH (08:29)
[2021-10-10] MEDS: Propofol 1,000 MG/100 ML VIAL IV PRN (10:44)
[2021-10-10] MEDS: Cefepime 1 GM in Sodium Chloride 0.9% 100 ML IVPB SCH (13:11)
[2021-10-10] MEDS ORDERED: Morphine 4 MG/ML VIAL SLOW IVP PRN (15:33)
[2021-10-10] MEDS: Lorazepam 2 MG/ML VIAL SLOW IVP PRN ×6 (15:45→23:15)
[2021-10-10] MEDS ORDERED: Lorazepam 2 MG/ML VIAL SLOW IVP PRN (16:15)
[2021-10-10] MEDS ORDERED: Lorazepam 2 MG/ML VIAL ONE (16:41)
[2021-10-10] MEDS ORDERED: Morphine 4 MG/ML VIAL ONE (16:41)
[2021-10-10] MEDS: Morphine 4 MG/ML VIAL SLOW IVP PRN ×7 (16:46→23:11)
[2021-10-10] MEDS: Azithromycin 500 MG in Sodium Chloride 0.9% 250 ML 250 ML IVPB SCH (17:45)
[2021-10-10] MEDS: Atropine Sulfate 1% Ophth Soln 5 ml Bottle PO PRN ×7 (17:51→23:33)
[2021-10-10] MEDS: Finasteride 5 MG TAB PO SCH (20:31)
[2021-10-10] MEDS: Gabapentin 300 MG CAP PO SCH (20:31)
[2021-10-10] MEDS ORDERED: Scopolamine 1.5 mg/72 hour Patch TD SCH (21:45)
[2021-10-11] MEDS: Morphine 4 MG/ML VIAL SLOW IVP PRN ×8 (00:35→10:17)
[2021-10-11] MEDS: Atropine Sulfate 1% Ophth Soln 5 ml Bottle PO PRN ×2 (00:36→09:27)
[2021-10-11] MEDS: Lorazepam 2 MG/ML VIAL SLOW IVP PRN ×4 (01:45→10:17)
[2021-10-11] MEDS: methylPREDNISolone Sod Succ 40 MG VIAL IVP SCH (06:37)
[2021-10-11] MEDS: Budesonide 0.5 MG/2 ML NEB NEB SCH (06:37)
[2021-10-11] MEDS: Arformoterol 15 MCG/2 ML NEB NEB SCH (06:37)
[2021-10-11 08:00] VITALS: BP 118/74; TEMP 98.4
[2021-10-11] MEDS ORDERED: Furosemide 20 MG/2 ML VIAL SLOW IVP SCH (08:30)
[2021-10-11] MEDS: Aspirin Chewable 81 MG TAB PER TUBE SCH (09:24)
[2021-10-11] MEDS: Enoxaparin Sodium 40 MG/0.4 ML SYRINGE SC SCH (09:24)
[2021-10-11 13:54] LABS: SARS-CoV-2 PCR by NAA Not Detected (NotDetected)
== END 2021-10-11 10:26 | disposition hospice, inpatient (51) | DRG 207 ==
LOC: ERS 20:46 → IMCU/EMU 22:18 → CCU 10-04 18:25 → ONC 10-10 18:26
PROVIDERS: ADMIT Internal Medicine; ATTEND Internal Medicine
PROC: 5A09357 Assistance with Respiratory Ventilation, Less than 24 Consecutive Hours, Continuous Positive Airway Pressure (ICD-10-PCS; principal; 2021-10-03)
PROC: 5A1955Z Respiratory Ventilation, Greater than 96 Consecutive Hours (ICD-10-PCS; 2021-10-04)
PROC: 0B918ZZ Drainage of Trachea, Via Natural or Artificial Opening Endoscopic (ICD-10-PCS; 2021-10-04)
PROC: 0BH18EZ Insertion of Endotracheal Airway into Trachea, Via Natural or Artificial Opening Endoscopic (ICD-10-PCS; 2021-10-04)
PROC: 0D9670Z Drainage of Stomach with Drainage Device, Via Natural or Artificial Opening (ICD-10-PCS; 2021-10-06)
DX: J96.21 Acute and chronic respiratory failure with hypoxia (principal); J18.9 Pneumonia, unspecified organism; Z66 Do not resuscitate; Z51.5 Encounter for palliative care; Z20.822 Contact with and (suspected) exposure to COVID-19; E87.4 Mixed disorder of acid-base balance; J44.1 Chronic obstructive pulmonary disease with (acute) exacerbation; J44.0 Chronic obstructive pulmonary disease with (acute) lower respiratory infection; E87.1 Hypo-osmolality and hyponatremia; J96.22 Acute and chronic respiratory failure with hypercapnia; E11.9 Type 2 diabetes mellitus without complications; E78.5 Hyperlipidemia, unspecified; N40.0 Benign prostatic hyperplasia without lower urinary tract symptoms; N18.2 Chronic kidney disease, stage 2 (mild); D63.1 Anemia in chronic kidney disease; E78.00 Pure hypercholesterolemia, unspecified; I12.9 Hypertensive chronic kidney disease with stage 1 through stage 4 chronic kidney disease, or unspecified chronic kidney disease; E87.6 Hypokalemia; E87.5 Hyperkalemia; R74.01 Elevation of levels of liver transaminase levels; Z78.1 Physical restraint status; Z99.81 Dependence on supplemental oxygen; Z87.891 Personal history of nicotine dependence
CPT/HCPCS: 0240U; 36415; 36416; 36600; 71045; 80048; 80053; 80076; 80202; 81001; 81003; 82010; 82550; 82805; 83036; 83605; 83735; 84100; 84484; 85025; 87070; 87086; 87205; 93005; 93010; 94002; 94003; 94644; 96374; 96375; J0456; J0692; J1650; J1815; J1940; J2060; J2250; J2270; J2704; J2920; J2930; J3010; J3370; J3475; J3490; J7030; J7050; J7070; J7620; J7626; U0003; U0005

== ENCOUNTER 2021-10-11 10:42 | Inpatient (IN) | payer OTHER ==
[2021-10-11] MEDS ORDERED: Scopolamine 1.5 mg/72 hour Patch TOP SCH (12:00)
[2021-10-11] MEDS: Haloperidol Lactate 5 MG/ML VIAL SLOW IVP SCH ×2 (12:15→18:05)
[2021-10-11] MEDS: Morphine 4 MG/ML VIAL SLOW IVP SCH ×4 (12:15→18:05)
[2021-10-11] MEDS ORDERED: Morphine 4 MG/ML VIAL SLOW IVP PRN (13:43)
[2021-10-11] MEDS: Morphine 10 MG/ML VIAL SLOW IVP SCH ×5 (19:19→23:17)
[2021-10-11] MEDS: Atropine Sulfate 1% Ophth Soln 5 ml Bottle PO PRN (23:21)
[2021-10-12] MEDS: Haloperidol Lactate 5 MG/ML VIAL SLOW IVP SCH ×5 (00:15→23:51)
[2021-10-12] MEDS: Morphine 10 MG/ML VIAL SLOW IVP SCH ×24 (00:19→23:50)
[2021-10-12] MEDS: Lorazepam 2 MG/ML VIAL SLOW IVP PRN ×8 (02:29→23:51)
[2021-10-12] MEDS: Atropine Sulfate 1% Ophth Soln 5 ml Bottle PO PRN (04:27)
[2021-10-12] MEDS: Furosemide 40 MG/4 ML VIAL SLOW IVP SCH (06:02)
[2021-10-13] MEDS: Morphine 10 MG/ML VIAL SLOW IVP SCH ×11 (00:53→10:13)
[2021-10-13] MEDS: Lorazepam 2 MG/ML VIAL SLOW IVP PRN ×12 (00:53→17:10)
[2021-10-13] MEDS: Haloperidol Lactate 5 MG/ML VIAL SLOW IVP SCH ×3 (06:18→18:33)
[2021-10-13] MEDS: Furosemide 40 MG/4 ML VIAL SLOW IVP SCH (08:14)
[2021-10-13 09:09] VITALS: BP 101/61
[2021-10-13] MEDS: Morphine 10 MG/ML VIAL SLOW IVP PRN ×6 (12:05→17:10)
[2021-10-13] MEDS: Atropine Sulfate 1% Ophth Soln 5 ml Bottle PO PRN (13:05)
[2021-10-13 14:22] VITALS: TEMP 101.8
== END 2021-10-13 18:20 | disposition expired | DRG 951 ==
LOC: ONC 10:42
PROVIDERS: ADMIT Family Medicine; ATTEND Family Medicine
DX: Z51.5 Encounter for palliative care (principal); J96.21 Acute and chronic respiratory failure with hypoxia; J44.1 Chronic obstructive pulmonary disease with (acute) exacerbation; E87.2 Acidosis; R79.89 Other specified abnormal findings of blood chemistry; I12.9 Hypertensive chronic kidney disease with stage 1 through stage 4 chronic kidney disease, or unspecified chronic kidney disease; N18.2 Chronic kidney disease, stage 2 (mild); Z66 Do not resuscitate
CPT/HCPCS: J1630; J1940; J2060; J2270; J7643